=== PATIENT | female | born 1995 | race Caucasian/White ===

== ENCOUNTER 2022-05-15 07:39 | Outpatient (CLI) | payer BC ==
[~2022-05-15] VITALS: Ht 154.9 cm; Wt 97.5 kg
[2022-05-15 08:01] VITALS: BP 142/74
[2022-05-15] MEDS ORDERED: diphenhydrAMINE 50 MG/ML INJ (BENADRYL) IV PRN (08:30)
[2022-05-15] MEDS ORDERED: BEBTELOVIMAB 175 MG/2 ML VIAL IV ONE (08:30)
[2022-05-15] MEDS ORDERED: ONDANSETRON 4 MG/2 ML (SDV) Z0FRAN IV PRN (08:30)
[2022-05-15] MEDS ORDERED: EPINEPHrine INJECTION 1 MG/ML AMP IM PRN (08:30)
[2022-05-15] MEDS ORDERED: ACETAMINOPHEN 500 MG TAB (TYLENOL) PO PRN (08:30)
== END 2022-05-15 09:31 | disposition home or self-care (01) ==
LOC: INFUSION 07:39
PROVIDERS: ATTEND Nurse Practitioner Family
DX: U07.1 COVID-19 (principal)